=== PATIENT | female | born 1950 | race Caucasian/White ===

== ENCOUNTER 2018-12-14 10:14 | Day surgery (SDC) | payer MEDICARE, MEDICAID ==
[~2018-12-14] VITALS: Ht 167.6 cm; Wt 112.8 kg
[2018-12-14] VITALS (10 sets, daily range): BP systolic 103–160; BP diastolic 54–81
[2018-12-14] MEDS ORDERED: normal saline 1,000 ML IV SCH (10:45)
[2018-12-14] MEDS ORDERED: diphenhydrAMINE 25mg capsule PO PRN (10:45)
[2018-12-14] MEDS ORDERED: ASPI-1265 PO (11:43)
[2018-12-14] MEDS ORDERED: AMLO2.5T2 PO (11:43)
[2018-12-14] MEDS ORDERED: INSU100C10 SQ (11:43)
[2018-12-14] MEDS ORDERED: PRED5TAB PO (11:43)
[2018-12-14] MEDS ORDERED: SITA50TA PO (11:43)
[2018-12-14] MEDS ORDERED: DULO60CA45 PO (11:43)
[2018-12-14] MEDS ORDERED: GABA-532 PO (11:43)
[2018-12-14] MEDS ORDERED: METF500T PO (11:43)
[2018-12-14] MEDS ORDERED: INSU100V9 SQ (11:43)
[2018-12-14] MEDS ORDERED: OLME20TA14 PO (11:51)
[2018-12-14] MEDS ORDERED: nitroGLYCERIN-Tridil 50MG/D5W 250 ML IV ONE (12:31)
[2018-12-14] MEDS ORDERED: verapamil 2.5 mg/ml inj IV ONE (12:31)
[2018-12-14] MEDS ORDERED: iohexol 350 MG/ML 50ML vial IV ONE (12:32)
[2018-12-14] MEDS ORDERED: heparin 1,000unit/ml 10ml vial 10 ML ONE (12:32)
[2018-12-14] MEDS ORDERED: iohexol 350MG/ML 100ml bottle IV ONE (12:32)
[2018-12-14] MEDS ORDERED: LIDOcaine 1% (10mg/ml)w/preservative injection 20ml MDV ONE (12:32)
[2018-12-14] MEDS ORDERED: fentaNYL/PF 50MCG/1 ML 2ML syringe ONE (12:32)
[2018-12-14] MEDS ORDERED: midazolam 2 mg/2 ml injection ONE ×2 (12:32→13:18)
[2018-12-14 13:08] LABS: BASOPHILS # (AUTO) 0.1 X10'3 (0-0.2); BASOPHILS % (AUTO) 1.1 % (0-1); EOSINOPHILS # (AUTO) 0.8 X10'3 (0-0.9); EOSINOPHILS % (AUTO) 6.3 % (0-6); HEMATOCRIT 33.2 % (35.0-45.0); HEMOGLOBIN 10.6 g/dl (12.0-16.0); LYMPHOCYTES # (AUTO) 2.8 X10'3 (1.1-4.8); LYMPHOCYTES % (AUTO) 22.1 % (21-51); MEAN CORPUSCULAR HEMOGLOBIN 26.6 PG (27.0-31.0); MEAN CORPUSCULAR HGB CONC 32.1 g/dL (33.0-36.5); MEAN CORPUSCULAR VOLUME 83.1 FL (78-98); MEAN PLATELET VOLUME 8.8 FL (7.4-10.4); MONOCYTES # (AUTO) 1.1 X10'3 (0-0.9); NEUTROPHILS # (AUTO) 7.8 X10'3 (1.8-7.7); NEUTROPHILS % (AUTO) 61.5 % (42-75); PLATELET COUNT 288 X10'3 (140-440); RED BLOOD COUNT 3.99 X10'6 (4.20-5.60); RED CELL DISTRIBUTION WIDTH 15.1 % (11.5-14.5); WHITE BLOOD COUNT 12.7 X10'3 (4.5-11.0)
[2018-12-14 13:14] LABS: ANION GAP 6 (8-16); BLOOD UREA NITROGEN 26 MG/DL (7-18); CALCIUM 8.8 MG/DL (8.5-10.1); CHLORIDE 106 MMOL/L (99-107); CREATININE 1.37 MG/DL (0.40-0.90); GLUCOSE 132 MG/DL (70-104); MAGNESIUM 1.9 MG/DL (1.5-2.4); SODIUM 139 MMOL/L (135-145); TOTAL CARBON DIOXIDE 27.2 MMOL/L (24-32); eGFR 38 ML/MIN
[2018-12-14] MEDS ORDERED: normal saline 1000ml 1,000 ML IV ONE (14:25)
== END 2018-12-14 17:05 | disposition home or self-care (01) ==
LOC: SSTAY O 10:14
PROVIDERS: ATTEND Internal Medicine Cardiovascular Disease
DX: I25.10 Atherosclerotic heart disease of native coronary artery without angina pectoris (principal); I10 Essential (primary) hypertension; E11.9 Type 2 diabetes mellitus without complications
CPT/HCPCS: 36415; 80048; 82948; 83735; 85025; 85610; 93005; 93458; 99152; J1644; J2001; J2250; J3010; J7030; Q0163; Q9967; 99153; A4620; C1769; J3490